=== PATIENT | female | born 1995 | race Hispanic/Latino ===

== ENCOUNTER 2024-11-19 19:12 | Emergency (ER) | payer BC ==
[~2024-11-19] VITALS: Ht 154.9 cm; Wt 86.2 kg
--- NOTE | 2024-11-19 19:51 | ERN ---
General Chief Complaint: Flu Symptoms Stated Complaint: CHILLS,HEADACHE,PALPITATIONS,STUFFY NOSE Time Seen by MD: 19:13 Source: patient History of Present Illness Initial Comments Patient is a 21-year-old female with a recent history of cough congestion nasal drainage. Patient states that these symptoms began about three days ago have been progressively getting worse. Patient also states that she has been having subjective fever she has not quantified it. Patient has been seen by a PCP yet. Patient has been around COVID and flu. Allergies: Coded Allergies: No Known Allergies (Unverified Allergy, Unknown, 11/19/24) Past Medical History Past Medical History: No Pertinent History Past Surgical History: Surgical History Other: LEFT KNEE Female( History) LMP: Nov 18, 2024 ROS Dictation CONSTITUTIONAL: No chills, no fever, no weakness, no diaphoresis, no malaise. HEAD/FACE: No signs of trauma. EENT: No eye pain, no blurred vision, no tearing, no double vision, no ear pain, no ear discharge, no nose pain, no nasal congestion, no throat pain, no throat swelling, no mouth pain. RESPIRATORY: No cough, no orthopnea, no SOB, no stridor, no wheezing. CARDIOVASCULAR: No chest pain, no edema, no palpitations, no syncope. GASTROINTESTINAL/ABDOMINAL: No abdominal pain, no constipation, no diarrhea, no nausea, no vomiting. GENITOURINARY: No abnormal discharge, no dysuria, no frequent urination, no hematuria. No complaints of pain in the genitals. MUSCULOSKELETAL: No back pain, no gout, no joint pain, no joint swelling, no muscle pain, no muscle stiffness, no neck pain. INTEGUMENTARY: No change in color, no change in hair/nails, no dryness, no lesion, no lumps, no rash. NEUROLOGICAL/PSYCH: No anxiety, not depressed, no emotional problem, no headache, no numbness, no pre-existing deficit, no history of seizures, no tremors, no weakness. HEMATOLOGIC/LYMPHATIC: Not anemic, no history of blood clots, no apparent bleeding, no bruising, glands not swollen. All Systems Negative, Except as Noted. Physical Exam Physical Exam Dictation VITAL SIGNS: Reviewed. GENERAL APPEARANCE: Alert, oriented x3, no acute distress, obese. HEAD AND FACE: Non-traumatic. EYES: PERRL, pink conjunctivas, eyelid no trauma, anterior chamber clear. EARS: Pinnas intact and no signs of trauma or erythema. Ear canals clear and no discharge. TMs erythema. NOSE: No discharge, no bleeding. Bilateral nasal turbinate swelling OROPHARYNX: Mouth normal, teeth no caries, tongue pink. Pharynx clear, no erythema. Tonsils no exudates, no abscesses noted. Mucous membrane moist. NECK: Supple, non-tender, no thyromegaly, no masses, no JVD, no bruits. BREAST: Deferred. CHEST: No tenderness, no crepitus, no paradoxical movement, no retractions. LUNGS: Clear, well-ventilated, symmetric, no rales, no wheezing, no rhonchi, no stridor, good breath sounds bilaterally. HEART: Regular rate, regular rhythm, no murmur, no gallops. VASCULAR: No peripheral edema. ABDOMEN: Soft, positive bowel sounds, nondistended, no guarding, nontender, no rebound, no masses no hepatomegaly, no splenomegaly, no Garcia's sign, no hernias. RECTAL: Deferred. GENITAL: Deferred. NEUROLOGICAL: Normal speech, gross motor function intact, gross sensory function intact. MUSCULOSKELETAL: Neck nontender, full range of motion, back nontender, full range of motion. EXTREMITIES: Nontender, full range of motion. SKIN: Color pink, dry, no turgor, no rash, no lacerations, no abrasions, no contusions. LYMPHATICS: Deferred. Results Laboratory and Microbiology Lab and Micro Result Laboratory Tests Test 11/19/24 19:59 Influenza Type A Antigen Negative For Type A Influenza Type B Antigen Negative For Type B SARS-CoV-2, RNA, NAAT NEGATIVE SARS CoV-2 Group A Streptococcus Rapid negative (NEGATIVE) Labs Reviewed?: Yes MDM MDM: Differential diagnosis: Sinusitis, influenza, COVID, strep Patient is a 21-year-old female coming in with URI symptoms. Patient states the symptoms has been ongoing for a couple of days. Laboratory workup negative for acute findings. Patient will be discharged with a diagnosis of sinusitis based on the physical findings bilateral tympanic membrane erythema nasal turbinate swelling and facial discomfort in the maxillary sinus region. All consistent with sinusitis of the maxillary sinus. ED Course Orders Procedure Category Date Status Time Covid Rna Naat LAB 11/19/24 Complete 19:20 Rapid (Group A Strep) LAB 11/19/24 Complete 19:20 Influenza Type A & B, LAB 11/19/24 Complete Rapid 19:20 Acetaminophen 500mg PHA 11/19/24 Complete Tab (Tylenol 500mg T 19:30 Current Medications Medications (Trade) Dose Ordered Sig/Cindi Route PRN Reason Start Time Stop Time Status Last Admin Dose Admin Acetaminophen (TYLenol 500MG TAB) 1,000 mg ONCE ONCE PO 11/19/24 19:30 11/19/24 19:31 DC 11/19/24 19:52 Vital Signs Date Time Temp Pulse Resp B/P (MAP) Pulse Ox O2 Delivery O2 Flow Rate FiO2 11/19/24 20:10 99.0 110 20 124/68 98 Room Air* 0 21 11/19/24 19:17 98.4 88 16 127/85 100 Room Air DX & DISP Disposition: Discharge Departure Impression: Primary Impression: Sinusitis Condition: Stable Scripts Fluticasone Propionate (Flonase Nasal [place]) 50 Mcg/Actuation [place] 2 SPRAY NS DAILY, #16 GM 0 Refills Prov: JANEE BRITO MD 11/19/24 Amoxicillin/Potassium Clav (Amox Tr-K Clv 875-125 mg Tab) 875 Mg-125 Mg Tablet 1 TAB PO BID for 10 Days, #20 TAB 0 Refills Prov: JANEE BRITO MD 11/19/24 Additional Instructions: FOLLOW-UP WITH PRIMARY CARE PROVIDER IN 1 TO 2 DAYS. TAKE MEDICATIONS DIRECTED HERE IN THE EMERGENCY ROOM. OKAY TO CONTINUE HOME MEDICATIONS UNLESS OTHERWISE DISCUSSED DURING YOUR VISIT IN THE EMERGENCY ROOM TODAY. RETURN TO YOUR NEAREST EMERGENCY ROOM IF SYMPTOMS WORSEN OR IF THERE IS NO IMPROVEMENT. CALL 911 IF YOU NEED IMMEDIATE ASSISTANCE. TAKE TYLENOL [id number] NEEDED AND IF NO CONTRAINDICATIONS ARE PRESENT. INCREASE ORAL HYDRATION. A WOUND CULTURE OR URINE CULTURE WAS ORDERED HERE IN THE EMERGENCY ROOM DEPARTMENT PLEASE FOLLOW-UP WITH PRIMARY CARE PROVIDER AND ADVISE THEM TO GET REPEAT PORTS FROM OUR FACILITY. IF YOU HAD ANY DIANA WRAP/SPLINTS THAT WERE APPLIED HERE, PLEASE DO NOT REMOVE THEM UNTIL YOU SEE YOUR PRIMARY CARE OR SPECIALTY. Referrals: Referrals: JALEN BOGGS MD Time of Disposition: 21:19 JANEE BRITO MD Nov 19, 2024 19:51
[2024-11-19] MEDS: acetaMINOPHEN 500 MG TABLET PO ONE (19:52)
[2024-11-19 20:38] LABS: RAPID GROUP A STREP negative (NEGATIVE)
[2024-11-19 20:40] LABS: SARS-CoV-2, RNA, NAAT NEGATIVE SARS CoV-2 (NEGATIVE)
[2024-11-19 20:47] LABS: INFLUENZA TYPE A Negative For Type A (NEGATIVE); INFLUENZA TYPE B Negative For Type B (NEGATIVE)
[2024-11-19] MEDS ORDERED: FLUT16H NS (21:20)
[2024-11-19] MEDS ORDERED: AMOX1TAB16 PO (21:20)
[2024-11-19 21:35] VITALS: BP 122/72; PULSE 100; RESP 20; TEMP 98.9; O2SAT 98
== END 2024-11-19 21:36 | disposition home or self-care (01) ==
LOC: EDH 19:12
DX: J32.9 Chronic sinusitis, unspecified (principal); Z20.822 Contact with and (suspected) exposure to COVID-19; Z98.890 Other specified postprocedural states
CPT/HCPCS: 87635; 87804; 87880; 99283